=== PATIENT | female | born 1985 | race Caucasian/White ===

== ENCOUNTER 2020-02-03 16:57 | Emergency (ER) | payer SELFPAY ==
[2020-02-03] MEDS ORDERED: OXYCODONE-ACETAMINOPHEN 5-325 MG TABLET PO ONE (17:27)
[2020-02-03] MEDS ORDERED: MORPHINE SULFATE 10 MG/ML INJ IM ONE (17:37)
--- NOTE | 2020-02-03 17:37 | ER Document Report ---
ED Medical Screen (RME) - General Chief Complaint: Fall Injury Stated Complaint: FALL/LEFT ELBOW PAIN,SWELLING Time Seen by Provider: 02/03/20 17:25 Mode of Arrival: Ambulatory Information source: Patient Notes: 34-year-old female presented to ED for pain in her left elbow. It is extremely swollen ecchymotic and she is not able to move the elbow. She states she was playing basketball last night when she fell on it. She thought she could take care of it but the pain is increased so much she cannot even move the arm or elbow. I have already x-rayed the elbow it is located with a probable fracture. I have greeted and performed a rapid initial assessment of this patient. A comprehensive ED assessment and evaluation of the patient, analysis of test results and completion of medical decision making process will be conducted by an additional ED providers. Past Medical History - Social History Cigarette use (# per day): Yes - 1/2 ppd Physical Exam - Vital signs Vitals: Temp Pulse Resp BP Pulse Ox 98.6 F 83 16 134/60 H 100 02/03/20 17:18 02/03/20 17:18 02/03/20 17:18 02/03/20 17:18 02/03/20 17:18 Course - Vital Signs Vital signs: Temp Pulse Resp BP Pulse Ox 98.6 F 83 16 134/60 H 100 02/03/20 17:18 02/03/20 17:18 02/03/20 17:18 02/03/20 17:18 02/03/20 17:18
--- NOTE | 2020-02-03 17:46 | RADIOLOGY REPORT (SQ) ---
EXAM DESCRIPTION: ELBOW LEFT OVER 2 VIEWS IMAGES COMPLETED DATE/TIME: 02/03/2020 5:37 pm REASON FOR STUDY: Left elbow injury pain swollen deformity COMPARISON: None. NUMBER OF VIEWS: Two views. TECHNIQUE: AP and lateral radiographic images acquired of the left elbow. LIMITATIONS: None. FINDINGS: MINERALIZATION: Normal. BONES: Posterior dislocation of the radius and ulna with respect to the humerus. Medial displacement . JOINT: No effusion. SOFT TISSUES: No soft tissue swelling. No foreign body. OTHER: No other significant finding. IMPRESSION: Posteromedial dislocation of the radius and ulnar with respect to the humerus. TECHNICAL DOCUMENTATION: JOB ID: [id number] 2010 [employer] All Rights Reserved Reading location - IP/workstation name: [email or web address]
[2020-02-03] MEDS ORDERED: FENTANYL CITRATE INJ/PF 100 MCG/2 ML AMPUL IV ONE ×2 (18:10→20:22)
[2020-02-03] MEDS ORDERED: ONDANSETRON HCL INJ/PF 4 MG/2 ML SDV IV ONE (18:37)
[2020-02-03] MEDS ORDERED: MIDAZOLAM 2 MG/2 ML INJ ONE (18:44)
[2020-02-03] MEDS ORDERED: PROPOFOL INJ 200 MG/20 ML VIAL IV ONE ×3 (19:10→21:01)
--- NOTE | 2020-02-03 19:35 | ER Document Report ---
Procedures - Conscious Sedation Conscious sedation Time started: 19:18 Time completed: 19:30 Consent obtained: Yes Indication: Dislocation reduction Last meal: >4h Prior complications: Other - None Normal healthy pt.: P1. - ASA Classification Airway Evaluation: Normal anatomy. No: Loose teeth, Neck immobility Mallampati Classification: Class 2 Used during procedure: Suction available, IV access obtained, Pulse ox on pt., conveyor monitor on pt. Medications administered: Diprivan I personally performed/intraservice time: Sedation, 30 min or less Complications: No
[2020-02-03] MEDS ORDERED: MIDAZOLAM 2 MG/2 ML INJ IV ONE (19:43)
[2020-02-03] MEDS ORDERED: MORPHINE SULFATE 10 MG/ML INJ IV ONE (19:44)
--- NOTE | 2020-02-03 19:52 | RADIOLOGY REPORT (SQ) ---
EXAM DESCRIPTION: ELBOW LEFT AP/LATERAL IMAGES COMPLETED DATE/TIME: 02/03/2020 7:43 pm REASON FOR STUDY: post reduction COMPARISON: Pre reduction radiograph NUMBER OF VIEWS: One view. TECHNIQUE: Lateral radiographic images acquired of the left elbow. LIMITATIONS: None. FINDINGS: MINERALIZATION: Normal. BONES: Persistent posterior dislocation of the radius and ulna with respect to the humerus. JOINT: No effusion. SOFT TISSUES: No soft tissue swelling. No foreign body. OTHER: No other significant finding. IMPRESSION: System dislocation. TECHNICAL DOCUMENTATION: JOB ID: [id number] 2010 [employer]- All Rights Reserved Reading location - IP/workstation name: [email or web address]
[2020-02-03] MEDS ORDERED: NORMAL SALINE 1000 ML 1,000 ML IV ONE (20:01)
--- NOTE | 2020-02-03 21:31 | Operative Report ---
Operative Report DATE OF SURGERY: 02/03/20 PREOPERATIVE DIAGNOSIS: Left simple elbow dislocation POSTOPERATIVE DIAGNOSIS: Same OPERATION: Close reduction left elbow dislocation SURGEON: CRISTINA MICHELLE COMPLICATIONS: None PROCEDURE: Procedure in detail: Patient was seen and evaluated in the emergency room. Attempted closed reduction was initially performed by the emergency room staff but unsuccessful. Risk and benefits of closed reduction were explained to the patient who verbalized understanding consented for surgical procedure. Orthopedics was consulted to perform closed reduction. Under the supervision of emergency room physician conscious sedation was administered. Once patient was ankle anesthetized traction and translation with posterior anterior force was applied to olecranon successfully reducing the elbow dislocation elbow was placed through range of motion there was notable instability of the medial and lateral joint line but on live mini C arm there is no evidence of articular incongruity and maintained reduction up to 35 degrees of extension. Patient was then placed in a posterior elbow splint with an additional sugar tong stabilizer to maintain reduction. Once casting material was set final radiographs were performed demonstrating maintained reduction of the fracture without incongruity. Patient tolerated procedure well was awoken from conscious sedation. Physical examination unchanged.
--- NOTE | 2020-02-03 21:36 | PDOC CONSULTATION ---
Consultation Consult Date: 02/03/20 Provider Consulted: CRISTINA MICHELLE History of Present Illness Patient complains of: Left elbow injury History of Present Illness: ELIZABETH REYES is a 34 year old female who was playing basketball the day prior when she sustained an injury to her elbow. She had notable pain and swelling at that time but she states she placed in traction which made it feel little better however overnight the pain continued. She subsequently presented to the emergency room where x-rays demonstrated dislocation. Close reduction was attempted by the emergency room providers without success thus orthopedic was consulted. Patient states she did have some tingling in her fingers which comes and goes. States pain is currently improved as compared to her original presentation in the emergency room. Pain 3/. Social History Smoking Status: Unknown if Ever Smoked Family History Parental Family History Reviewed: No Children Family History Reviewed: No Sibling(s) Family History Reviewed.: No Medication/Allergy Allergies/Adverse Reactions: No Known Allergies Allergy (Unverified 02/03/20 18:39) Review of Systems Constitutional: ABSENT: chills, fever(s), headache(s), weight gain, weight loss Eyes: ABSENT: visual disturbances Ears: ABSENT: hearing changes Cardiovascular: ABSENT: chest pain, dyspnea on exertion, edema, orthropnea, pal pitations Respiratory: ABSENT: cough, hemoptysis Gastrointestinal: ABSENT: abdominal pain, constipation, diarrhea, hematemesis, hematochezia, nausea, vomiting Genitourinary: ABSENT: dysuria, hematuria Musculoskeletal: PRESENT: as per HPI Integumentary: ABSENT: rash, wounds Neurological: ABSENT: abnormal gait, abnormal speech, confusion, dizziness, focal weakness, syncope Psychiatric: ABSENT: anxiety, depression, homidical ideation, suicidal ideation Endocrine: ABSENT: cold intolerance, heat intolerance, menstrual abnormalities, polydipsia, polyuria Hematologic/Lymphatic: ABSENT: easy bleeding, easy bruising, lymphadenopathy Physical Exam Vital Signs: Temp Pulse Resp BP Pulse Ox 98.6 F 68 18 128/91 H 100 02/03/20 17:18 02/03/20 21:24 02/03/20 21:26 02/03/20 21:26 02/03/20 21:26 Intake & Output 02/02/20 02/03/20 02/04/20 06:59 06:59 06:59 Weight 72.575 kg General appearance: PRESENT: no acute distress, well-developed, well-nourished Head exam: PRESENT: atraumatic, normocephalic Eye exam: PRESENT: conjunctiva pink, EOMI, PERRLA. ABSENT: scleral icterus Ear exam: PRESENT: normal external ear exam Mouth exam: PRESENT: moist, tongue midline Neck exam: PRESENT: full ROM. ABSENT: carotid bruit, JVD, lymphadenopathy, thyromegaly Cardiovascular exam: PRESENT: RRR. ABSENT: diastolic murmur, rubs, systolic murmur Pulses: PRESENT: normal dorsalis pedis pul, +2 pedal pulses bilateral Vascular exam: PRESENT: normal capillary refill GI/Abdominal exam: PRESENT: normal bowel sounds, soft. ABSENT: distended, guarding, mass, organolmegaly, rebound, tenderness Rectal exam: PRESENT: deferred Musculoskeletal exam: PRESENT: other - Left elbow: Bruising noted along the antecubital fossa. Appropriate tenderness to palpation. Moderate swelling. Compartments soft and compressible no sign of compartment syndrome. Intact sharp versus dull touch median, ulnar and radial nerve distribution. Independent IP/PIP flexion/extension intact. EPL/FPL intact. Full active extension of the IP/MP joints. Radial pulse 2+. Cap refill less than 2 seconds. Neurological exam: PRESENT: alert, awake, oriented to person, oriented to place, oriented to time, oriented to situation, CN II-XII grossly intact. ABSENT: motor sensory deficit Psychiatric exam: PRESENT: appropriate affect, normal mood. ABSENT: homicidal ideation, suicidal ideation Skin exam: PRESENT: dry, intact, warm. ABSENT: cyanosis, rash Results Impressions: Elbow X-Ray 02/03/20 17:26 IMPRESSION: Posteromedial dislocation of the radius and ulnar with respect to the humerus. Status: Image reviewed by me - Multiple views left elbow were reviewed consistent with simple elbow dislocation there is no evidence of associated coronoid or proximal radial fracture over there is small avulsion likely lateral or medial epicondyle which is outside the joint on postreduction radiographs. Assessment & Plan - Diagnosis (1) Dislocation of left elbow Qualifiers: Encounter type: initial encounter Qualified Code(s): S53.105A - Unspecified dislocation of left ulnohumeral joint, initial encounter Is this a current diagnosis for this admission?: Yes Plan: Patient sustained left elbow dislocation. Unfortunate irreducible on initial attempt. I discussed treatment options with the patient including additional close reduction attempt versus operative intervention. Patient understands if it could not be reduced she would require operative treatment after discussing risk and benefits decision was made to proceed with operative intervention. See procedure note for details. Once reduction was completed there was concentric reduction and stability and thus I do not feel operative intervention is likely to be warranted pending future follow-up. Patient will follow in the office with myself or one of my partners in the next 10-14 days. If patient notices nu mbness, tingling or worsening pain she should return to the emergency room for further evaluation. - Time Time Spent: 30 to 50 Minutes
--- NOTE | 2020-02-03 21:47 | ER Document Report ---
ED General - General Chief Complaint: Fall Injury Stated Complaint: FALL/LEFT ELBOW PAIN,SWELLING Time Seen by Provider: 02/03/20 17:25 Primary Care Provider: CORTNEY STEWART JR, DO [ACTIVE PROVISIONAL STAFF] - Follow up in 3-5 days (call for orthopedic follow up) Mode of Arrival: Ambulatory - [facility] Notes: 34-year-old female to the emergency department with complaints of left elbow pain and swelling since last night. She states she was playing basketball and fell down onto her elbows. She states when she fell onto the left arm she had a piece of cement. She states that it immediately hurt and she really has not been able to use it. She went home and tried to go to bed. She states that it continued to hurt and had bruising and swelling. She states that finally she w as having such pain that she decided to get seen. She is right-hand dominant. She denies hitting her head or any loss of consciousness. - Related Data Allergies/Adverse Reactions: No Known Allergies Allergy (Unverified 02/03/20 18:39) Past Medical History - General Information source: Patient - Social History Smoking Status: Current Every Day Smoker Cigarette use (# per day): Yes - 1/2 ppd Frequency of alcohol use: Social Drug Abuse: None Family History: Reviewed & Not Pertinent Review of Systems - Review of Systems Constitutional: denies: Chills, Fever EENT: No symptoms reported Cardiovascular: denies: Chest pain, Palpitations, Orthopnea, Dyspnea, Syncope, Dizziness, Lightheaded, Edema Respiratory: denies: Cough, Short of breath Gastrointestinal: denies: Abdominal pain, Diarrhea, Nausea, Vomiting Musculoskeletal: Joint pain - left elbow, Joint swelling Skin: Change in color - ecchymosis left elebow Neurological/Psychological: No symptoms reported -: Yes All other systems reviewed and negative Physical Exam - Vital signs Vitals: Temp Pulse Resp BP Pulse Ox 98.6 F 83 16 134/60 H 100 02/03/20 17:18 02/03/20 17:18 02/03/20 17:18 02/03/20 17:18 02/03/20 17:18 Interpretation: Normal - General General appearance: Appears well, Alert In distress: None - HEENT Head: Normocephalic, Atraumatic Eyes: Normal Pupils: PERRL Neck: Normal, Supple - Respiratory Respiratory status: No respiratory distress Chest status: Nontender Breath sounds: Normal. No: Rales, Rhonchi, Wheezing Chest palpation: Normal - Cardiovascular Rhythm: Regular Heart sounds: Normal auscultation Murmur: No - Back Back: Normal, Nontender. No: Vertebra tenderness - Extremities Elbow: Tender, Deformity, Ecchymosis - To the left elbow there is edema and deformity. There is noted ecchymosis in the antecubital fossa. Patient has extremely tender to palpation over the elbow. She has no tenderness to palpation over the left shoulder or left wrist. Handgrip is about a 4 out of 5 due to pain on the left side. Radial pulses are intact and equal Course - Re-evaluation Re-evalutation: 02/03/20 Initial attempt to try to reduce the elbow was not successful with 2 of Versed and [address] Cabral then helped to perform conscious sedation on the patient with 120 mg of propofol. Together we attempted reduction. We thought that we had had a good reduction. However, on repeat post reduction x- ray at the elbow is still out. Thus, spoke with Dr. Cuellar, our orthopedist, and he will come and see the patient. Dr. Ware performed sedation while Dr. Cuellar reduced the elbow with the C arm. Successful reduction was obtained. Patient had significant improvement of her pain. She was monitored post sedation and she did very well. She is up and able to get to the restroom. She will be sent home with outpatient pain pres cription. She is to follow-up next week with Dr. Stewart, Dr. Cuellar's partner, in the office for further management of her elbow. She is not to remove the splint until she sees Dr. Stewart. Patient agrees with the plan. Impression: Left elbow dislocation. Initial attempts for reduction were unsuccessful. Dr. Cuellar was able to reduce the elbow with the aid of C arm. Patient had relief of pain once reduced. She will follow-up in orthopedist office outpatient. - Vital Signs Vital signs: Temp Pulse Resp BP Pulse Ox 98.6 F 68 18 128/91 H 100 02/03/20 17:18 02/03/20 21:24 02/03/20 21:26 02/03/20 21:26 02/03/20 21:26 - Diagnostic Test Radiology reviewed: Image reviewed, Reports reviewed Procedures - Joint Reduction/Fracture Care Left Elbow Consent obtained: Yes Conscious sedation: Yes Pre-procedure NV exam: Yes Fracture: Other - no fracture Post-procedure NV exam: Yes Post-reduction x-ray: Joint not reduced - Dr. Cuellar was consulted for further aid in reduction Notes: 02/03/20 22:28 Patient was not successfully reduced. Orthopedist was consulted. Discharge - Discharge Clinical Impression: Elbow pain, left Dislocated elbow Qualifiers: Encounter type: initial encounter Laterality: left Qualified Code(s): S53.105A - Unspecified dislocation of left ulnohumeral joint, initial encounter Condition: Stable Disposition: HOME, SELF-CARE Instructions: Dislocation ([facility]) Additional Instructions: Today had reduction of a left elbow dislocation. You need to stay in the splint and sling without fail until you follow-up with orthopedist. Take pain medicines as prescribed. You should expect some soreness. Dr. Cuellar reduced you today in the emergency department but you will follow up with his partner, Dr. Stewart, in the office next week. Call the office on Thursday to schedule that appointment. Prescriptions: Ondansetron [Zofran Odt 4 mg Tablet] 1 - 2 tab PO Q4HP PRN #10 tab.rapdis PRN Reason: Oxycodone HCl/Acetaminophen [Percocet 5-325 mg Tablet] 1 tab PO Q6H PRN #15 tab PRN Reason: Forms: Special Work Note Referrals: CORTNEY STEWART JR, [ACTIVE PROVISIONAL STAFF] - Follow up in 3-5 days (call for orthopedic follow up)
--- NOTE | 2020-02-03 22:05 | RADIOLOGY REPORT (SQ) ---
INTRAOPERATIVE FLUOROSCOPY HISTORY: Closed reduction. TECHNIQUE: Fluoroscopic guidance was provided to the clinical service in support of an operative procedure without a radiologist present. Limited static images were submitted for interpretation. FINDINGS: Dose: 0.137 mGy. Fluoro time: 7 seconds. 5 images were submitted. IMPRESSION: Intraoperative fluoroscopy. Please refer to the operative report for complete details.
[2020-02-03 22:22] VITALS: BP 125/77
--- NOTE | 2020-02-04 09:58 | RADIOLOGY REPORT (SQ) ---
EXAM DESCRIPTION: NO CHG FLUORO IMAGES COMPLETED DATE/TIME: 02/03/2020 9:34 pm REASON FOR STUDY: CLOSED REDUCTION IN THE ED COMPARISON: None. FLUOROSCOPY TIME: Less than one hour. 7 seconds fluoro time. LIMITATIONS: None. PROCEDURE: Fluoroscopy was provided for intraprocedural guidance. No images were stored in the PACS system. IMPRESSION: Intraprocedural fluoroscopy was provided. No images were stored in the PACS system. Please Correlate with the procedure report. COMMENT: Quality ID [id number]: Final reports for procedures using fluoroscopy that document radiation exp osure indices, or exposure time and number of fluorographic images (if radiation exposure indices are not available) TECHNICAL DOCUMENTATION: JOB ID: [id number] 2010 [employer]- All Rights Reserved Reading location - IP/workstation name: [email or web address]
== END 2020-02-03 22:20 | disposition home or self-care (01) ==
LOC: ER 16:57
DX: S53.105A Unspecified dislocation of left ulnohumeral joint, initial encounter (principal); W03.XXXA Other fall on same level due to collision with another person, initial encounter; Y93.67 Activity, basketball; F17.210 Nicotine dependence, cigarettes, uncomplicated
CPT/HCPCS: 99284; 96372; 99152; 96374; 96375; 73070; 73080; 24600; J2250; J3010; J2270; J2405; J2704